=== PATIENT | female | born 1930 | race Caucasian/White ===

== ENCOUNTER 2019-02-28 11:43 | Emergency (ER) | payer OTHER ==
[~2019-02-28] VITALS: Ht 160 cm; Wt 76.2 kg
[2019-02-28 11:55] VITALS: Ht 160 cm; Wt 76.2 kg
[2019-02-28 12:52] LABS: CALCIUM 8.5 mg/dL (8.5-10.1); CARBON DIOXIDE 27.9 mmol/L (21-32); CHLORIDE SERUM 103 mmol/L (98-107); CREATININE SERUM 1.3 mg/dL (0.6-1.0); GLUCOSE SERUM 90 mg/dL (74-106); POTASSIUM SERUM 4.1 mmol/L (3.5-5.1); SODIUM SERUM 139 mmol/L (136-145)
[2019-02-28 12:58] LABS: ALKALINE PHOSPHATASE 56 U/L (46-116); ALT/SGPT 20 U/L (14-59); AST/SGOT 23 U/L (15-37); BILIRUBIN TOTAL 0.3 mg/dL (0.20-1.00); TOTAL PROTEIN, SERUM 6.6 g/dL (6.4-8.2)
[2019-02-28 13:01] LABS: ALBUMIN 3.2 g/dL (3.4-5.0)
[2019-02-28 13:11] LABS: BASOPHIL % 0.3 % (0-2); PLATELET COUNT 218 x10^3mcL (130-400)
[2019-02-28 13:48] LABS: UA SPECIFIC GRAVITY <=1.005 (1.005-1.035); microscopic required? YES; urine erythrocyte TRACE (NEGATIVE)
[2019-02-28 15:55] VITALS: BP 141/68
== END 2019-02-28 15:55 | disposition home or self-care (01) ==
LOC: ED 11:43
PROVIDERS: Emergency Medicine
DX: R53.1 Weakness (principal); T40.2X5A Adverse effect of other opioids, initial encounter; D64.9 Anemia, unspecified; I10 Essential (primary) hypertension; M19.90 Unspecified osteoarthritis, unspecified site; I25.2 Old myocardial infarction; Y92.89 Other specified places as the place of occurrence of the external cause
CPT/HCPCS: J1885; J7030; Q0092

== ENCOUNTER 2019-03-04 05:32 | Emergency (ER) | payer OTHER ==
[~2019-03-04] VITALS: Ht 162.6 cm; Wt 76.2 kg
[2019-03-04 05:45] VITALS: Ht 162.6 cm; Wt 76.2 kg
[2019-03-04 09:03] VITALS: BP 151/86
== END 2019-03-04 09:03 | disposition home or self-care (01) ==
LOC: ED 05:32
DX: S70.01XA Contusion of right hip, initial encounter (principal); S80.02XA Contusion of left knee, initial encounter; I10 Essential (primary) hypertension; M19.90 Unspecified osteoarthritis, unspecified site; W18.39XA Other fall on same level, initial encounter; Y93.89 Activity, other specified; Y92.098 Other place in other non-institutional residence as the place of occurrence of the external cause; Y99.8 Other external cause status
CPT/HCPCS: J3010

== ENCOUNTER 2019-04-09 06:22 | Emergency (ER) | payer OTHER ==
[~2019-04-09] VITALS: Ht 160 cm; Wt 76.2 kg
[2019-04-09 06:28] VITALS: Ht 160 cm; Wt 76.2 kg
[2019-04-09 07:37] LABS: BASOPHIL % 0.3 % (0-2); PLATELET COUNT 198 x10^3mcL (130-400)
[2019-04-09 07:46] LABS: CALCIUM 8.1 mg/dL (8.5-10.1); CARBON DIOXIDE 24.5 mmol/L (21-32); CHLORIDE SERUM 103 mmol/L (98-107); CREATININE SERUM 1.4 mg/dL (0.6-1.0); GLUCOSE SERUM 93 mg/dL (74-106); POTASSIUM SERUM 4.3 mmol/L (3.5-5.1); SODIUM SERUM 139 mmol/L (136-145)
[2019-04-09 07:51] LABS: RED CELL DISTRIBUTION WIDTH 16.5 % (11.5-14.5)
[2019-04-09 09:14] VITALS: BP 148/63
== END 2019-04-09 09:14 | disposition home or self-care (01) ==
LOC: ED 06:22
PROVIDERS: Emergency Medicine
DX: R33.9 Retention of urine, unspecified (principal); R39.198 Other difficulties with micturition; I10 Essential (primary) hypertension; M19.90 Unspecified osteoarthritis, unspecified site; Z86.73 Personal history of transient ischemic attack (TIA), and cerebral infarction without residual deficits
CPT/HCPCS: 36415

== ENCOUNTER 2019-04-15 01:21 | Inpatient (IN) | payer OTHER ==
[~2019-04-15] VITALS: Ht 162.6 cm; Wt 73.9 kg
--- NOTE | 2019-04-15 01:48 | NUR ---
PT BIBA FOR C/O RECTAL BLEEDING THAT HAD BEEN INTERMITTENT X4 DAYS. PER PT " I HAVE HAD 4 TIMES OF RED POOP". PT REPORTS HX OF DIVERTICULITIS. PT DENIES ANY RECENT TRAUMA TO THE AREA OR SEEING A SPECIALIST. PT IS A/O X4. PT RESPS ARE E/U. PT WAS TRANSFERRED FROM [facility] TO [facility] WITH NO INCIDENCE
--- NOTE | 2019-04-15 01:49 | NUR ---
MSE COMPLETED BY DR WARREN
--- NOTE | 2019-04-15 02:11 | NUR ---
PT MEDICATED PER EMAR ORDERS. PT IS A/O X4. PT RESPS ARE E/U. PT DENEISANY PAIN AT THIS TIME. PT IS PLACED IN POSITION OF COMFORT WITH CALL LIGHT WITHIN REACH. NO ACD NOTED
[2019-04-15 02:20] LABS: CALCIUM 8.5 mg/dL (8.5-10.1); CARBON DIOXIDE 26.9 mmol/L (21-32); CHLORIDE SERUM 104 mmol/L (98-107); CREATININE SERUM 1.6 mg/dL (0.6-1.0); GLUCOSE SERUM 100 mg/dL (74-106); SODIUM SERUM 139 mmol/L (136-145)
--- NOTE | 2019-04-15 02:20 | NUR ---
PT WAS STRAIGHT CATH FOR URINE SPECIMEN. PT TOLERATED PROCEDURE WELL
[2019-04-15 02:23] LABS: BASOPHIL % 0.3 % (0-2); PLATELET COUNT 231 x10^3mcL (130-400)
[2019-04-15 02:24] LABS: ALKALINE PHOSPHATASE 58 U/L (46-116); ALT/SGPT 14 U/L (14-59); AST/SGOT 15 U/L (15-37); BILIRUBIN TOTAL 0.19 mg/dL (0.20-1.00); LIPASE 256 IU/L (73-393); TOTAL PROTEIN, SERUM 6.7 g/dL (6.4-8.2)
[2019-04-15 02:27] LABS: ALBUMIN 3.2 g/dL (3.4-5.0)
--- NOTE | 2019-04-15 02:33 | NUR ---
PT TAKEN TO CT VIA LACI OLIVERA BY TECH
--- NOTE | 2019-04-15 02:40 | NUR ---
PT RETURNED FROM CT WITH NO INCIDECNE
--- NOTE | 2019-04-15 03:05 | NUR ---
PT PLACED ON BEDSIDE CAMMODE. PT STS THAT SHE NEEDS TO URINATE
[2019-04-15 03:30] LABS: UA SPECIFIC GRAVITY <=1.005 (1.005-1.035); microscopic required? YES; urine erythrocyte TRACE (NEGATIVE)
--- NOTE | 2019-04-15 03:31 | NUR ---
PLACED PT BACK IN BED AND NOTICED THAT THE PT HAS PASSED DARK RED LIQUID STOOL WITH AN ODOR. DR WARREN MADE AWARE
--- NOTE | 2019-04-15 04:20 | NUR ---
PORTABLE XRAY AT BEDSIDE
[2019-04-15 04:33] LABS: CHOLESTEROL/HDL RATIO 2.9; MAGNESIUM 2.1 mg/dL (1.8-2.4)
--- NOTE | 2019-04-15 04:33 | NUR ---
GAVE PT REPORT TO MARTHA ARVIZU ON TELE FLOOR WHO WILL ASSUME PRIMARY CARE OF PT.
[2019-04-15] MEDS ORDERED: GOOD SENSE ASPI81 M3 (04:54)
[2019-04-15] MEDS ORDERED: ZESTRIL5 MG (04:54)
[2019-04-15] MEDS ORDERED: ATENOLOL25 MG (04:54)
[2019-04-15] MEDS ORDERED: LIPITOR40 MG (04:54)
[2019-04-15 05:17] VITALS: BP 128/69
--- NOTE | 2019-04-15 05:34 | NUR ---
RECIEVED PT FROM ED. PT IS NO APPARENT DISTRESS. PT IS A/O X4. ON TELE #18, ST. DENIES ANY CHEST PAIN OR PRESSURE. PULSES ARE PRESENT. NO EDEMA NOTED. PT STATES SHE FEELS A TINGLING SENSATION ON R LEG AFTER HER FALLS. PT STATED SHE HAS FALLEN 2-3 TIMES IN THE LAST MONTH. MD FRIAS WAS MADE AWARE AND ORDERED XRAY. SKIN IS INTACT. LUNGS CLEAR IN ALL FEILDS. ON RA, DENIES ANY SOB. EQUAL CHEST RISE AND FALL. NO SIGN OF RESP DISTRESS. BOWEL SOUNDS PRESENT x4. DENIES ANY ABD PAIN. PT C/O BLOODY BMS. HAVING LAST 3 LAST NIGHT BEFORE COMING TO ED AND ONE DOWN IN ED. NO HEMRROID OR LACERATION ON RECTAL AREA NOTED. PT ALSO COMPLAINS OF UNABLE TO VOID BUT HAVING THE URGENCY TO VOID. PT LAST VOIDED DOWNSTAIRS BEFORE COMING UP. PT C/O OF BACK PAIN, DULL AND CONSTANT. WILL MEDICATE PER EMAR. IV ON RFA INTACT AND PATENT. BED IS AT LOWEST SETTING. CALL LIGHT WITHIN REACH. BED ALARM IS ON. FALL RISK BAND ON.
--- NOTE | 2019-04-15 06:38 | NUR ---
ASSISTED PT TO BEDSIDE CAMMODE. DARK RED LIQUID WITH SOLID DARK RED MASSES NOTED. PT WAS COMPLAINING OF PAIN, PAIN MEDICATION PER EMAR GIVEN. PT PLACED BACK IN BED. BED IS AT LOWEST SETTING. CALL LIGHT WITHIN REACH. WILL ENDORSE TO AM NURSE.
[2019-04-15 06:45] LABS: BASOPHIL % 0.2 % (0-2); PLATELET COUNT 210 x10^3mcL (130-400)
[2019-04-15 06:50] LABS: CARBON DIOXIDE 25.5 mmol/L (21-32); CHLORIDE SERUM 109 mmol/L (98-107); CREATININE SERUM 1.5 mg/dL (0.6-1.0); GLUCOSE SERUM 97 mg/dL (74-106); POTASSIUM SERUM 4.4 mmol/L (3.5-5.1); SODIUM SERUM 142 mmol/L (136-145)
--- NOTE | 2019-04-15 07:15 | NUR ---
AAO X4.DENIES ANY PAIN/DISCOMFORT.LUNGS CLEAR.ON SR ON THE MONITOR.HR=89.IVF NS GOING AT 100 ML/HR INFUSING WELL.ON NPO STATUS.FOR TO SEE.CALL LIGHT WITHIN REACH.INSTRUCTED TO CALL FOR ANY PAIN/DISCOMFORT.WILL CONTINUE TO MONITOR PT.
[2019-04-15 07:21] LABS: RED CELL DISTRIBUTION WIDTH 16.4 % (11.5-14.5)
[2019-04-15 08:51] VITALS: BP 123/63
--- NOTE | 2019-04-15 10:28 | NUR ---
PT C/O BACK PAIN AT 8/10 PAIN SCALE.NORCO NOT TIME YET.SPOKE WITH WILL ORDER PAIN MED.
--- NOTE | 2019-04-15 11:18 | NUR ---
SPOKE WITH .INFORMED HIM ABOUT THE INSURANCE WANTING TO HAVE PT TRANSFER TO CONTRACTED HOSPITAL. PER PT IS STABLE TO BE TRANSFERRED TO CONTRACTED HOSPITAL.
[2019-04-15 12:34] VITALS: BP 136/74
[2019-04-15 13:14] LABS: TOTAL IRON BINDING CAPACITY 320 ug/dL (250-450)
[2019-04-15 13:15] LABS: IRON 26 ug/dL (50-170)
--- NOTE | 2019-04-15 14:26 | NUR ---
TALKED TO TO LET HIM KNOW ABOUT PT HAD PSVT NON-SUSTAINED.PT ASSYMPTOMATIC.
[2019-04-15 17:56] VITALS: BP 143/65
[2019-04-15 18:39] VITALS: Ht 162.6 cm; Wt 73.9 kg
--- NOTE | 2019-04-15 19:30 | NUR ---
PT IS A/O x4. ON TELE #18, ST WITH HR OF 110. PULSES ARE PRESENT. NO EDEMA NOTED. LUNGS CLEAR IN ALL FEILDS. ON RA, DENIES ANY SOB. EQUAL CHEST RISE AND FALL. NO SIGN OF RESP DISTRESS. BOWEL SOUNDS PRESENT X4. DENIES ANY ABD PAIN OR DISTRESS. PT STATED NOT HAVING ANY BLOODY BM LATER IN THE DAY. STILL COMPAINING OF URGENCY FOR URINATION BUT WAS ABLE TO VOID TODAY. COMPLAINS OF THE TINGLING SENSATION ON RLE. SKIN INTACT. COMPLAINS OF MILD LOWER BACK DISCOMFORT, 3/10. DULL AND TOLERABLE. IV ON RFA INTACT AND PATENT. GRANDDAUGHTER AT BEDSIDE. BED IS AT LOW SETTING. CALL LIGHT WITHIN REACH. WILL CONTINUE TO MONTIOR.
--- NOTE | 2019-04-15 19:51 | NUR ---
PT IS COMPLAINING OF BACK PAIN. PAIN MEDICATION GIVEN PER EMAR. K PAD PLACED ON HER BACK FOR WARM COMFORT. PT STATES THE PAD FEELS NICE. WILL CONTINUE TO MONTIOR.
--- NOTE | 2019-04-15 20:05 | NUR ---
PT IS CRYING IN PAIN. STATING THE NORCO ISN'T HELPING AND THAT SHE IS IN ALOT OF PAIN. MD FRIAS WAS CALLED AND ASKED FOR DIFFERENT PAIN MEDICATION. MD TO INPUT ORDERS.
--- NOTE | 2019-04-15 20:26 | NUR ---
ONE TIME DOES PAIN MEDICATION GIVEN PER EMAR. PT IS SEEN IN ALOT OF PAIN MOANING AND CRYING. WILL REASSES PT PAIN.
[2019-04-15 21:10] VITALS: BP 147/79
[2019-04-16] VITALS (7 sets, daily range): BP systolic 95–134; BP diastolic 56–82
--- NOTE | 2019-04-16 01:04 | NUR ---
PT IS RESTING IN BED WITH BOTH EYES CLOSED. BREATHING EVEN AND UNALBORED. NO SIGN OF DISTRESS NOTED. IV INTACT AND PATENT. BED IS AT LOWEST SETTING. CALL LIGHT WITHIN REACH. WILL CONTINUE TO MONTIOR.
[2019-04-16 06:05] LABS: BASOPHIL % 0.2 % (0-2); PLATELET COUNT 187 x10^3mcL (130-400)
--- NOTE | 2019-04-16 06:22 | NUR ---
PT IS RESTING IN BED. COMPLAIN OF BACK PAIN AND REQUESTED A PAIN MEDICATION. GIVEN NORCO PER EMAR. PT IS HAVING SMALL BLOODY, LIQUID STOOLS WITH SMALL CLOTS. ONLY TWO EPISODES OCCURED IN THE EARLY AM. BED IS AT LOWEST SETTING. CALL LIGHT WITHIN REACH. WILL CONTIUE TO [facility].
[2019-04-16 06:23] LABS: CALCIUM 7.9 mg/dL (8.5-10.1); CARBON DIOXIDE 25.7 mmol/L (21-32); CHLORIDE SERUM 112 mmol/L (98-107); CREATININE SERUM 1.2 mg/dL (0.6-1.0); GLUCOSE SERUM 85 mg/dL (74-106); MAGNESIUM 1.8 mg/dL (1.8-2.4); PHOSPHOROUS 3.2 mg/dL (2.5-4.9); POTASSIUM SERUM 4.7 mmol/L (3.5-5.1); SODIUM SERUM 145 mmol/L (136-145)
--- NOTE | 2019-04-16 07:15 | NUR ---
PT RESTING IN BED WITH BOTH EYES CLOSED. EASILY AROUSABLE TO VERBAL STIMULI. FACE SYMMETRICAL. SPEECH CLEAR. AA/OX4. FOLLOWS COMPLEX COMMANDS, RESPONDS TO VERBAL STIMULI. SINUS TACH ON TELE 18. DENIES CHEST PAIN. DENIES SOB ON ROOM AIR. BSC IN PLACE AT BEDSIDE. FALL PRECAUTIONS IN PLACE. BED ALARM ON. INSTRUCTED TO USE CALL LIGHT TO CALL FOR ASSISTANCE BEFORE AMBULATING. VERBALIZED UNDERSTANDING. IV WNL TO RFA, IV FLUIDS FLOWING, PATENT, SITE WNL. NO S/S OF ACUTE DISTRESS. BED IN LOW POSITION. CALL LIGHT WITHIN REACH. PT DENIES PAIN/BACK PAIN AT THIS TIME. NO N/V. SIDE RAILS UP X2. WILL CONTINUE TO MONITOR.
[2019-04-16 07:27] LABS: RED CELL DISTRIBUTION WIDTH 16.3 % (11.5-14.5)
--- NOTE | 2019-04-16 12:55 | NUR ---
PT AA/OX4. ASSISTED TO BSC, VOID X1. ASSISTED BACK TO BED. GAIT SLOW/STEADY. TOLERATED ACTIVITY WELL. NO S/S OF ACUTE DISTRESS. DENIES PAIN AT THIS TIME. NO SOB ON ROOM AIR. NO CHEST PAIN. CALM/COOPERATIVE. BED IN LOW POSITION. HOB ELEVATED, PT EATING LUNCH. FALL PRECAUTIONS IN PLACE. BED ALARM ON. SIDE RAILS UP X2. WILL CONTINUE TO MONITOR.
--- NOTE | 2019-04-16 15:08 | NUR ---
PHYSICAL THERAPY DAILY NOTES CO-SIGN All documentation done by the Stitch Welder for 04/16/19 has been reviewed. I agree with the documentation. Reviewed/Co-Signed by: Elma Massey PT Documentation Done by: ELLE SALMERON PTA
--- NOTE | 2019-04-16 19:29 | NUR ---
PT LAYING IN BED. AA/OX4. ASSISTED TO BSC, BM X1 DARK/BLACK. DENIES ABD. PAIN. NO N/V. VOID X1. COMPLAINT OF URGENCY/FREQUENCY. ASSISTED WITH PERINEAL/PERIANAL CARE. NO S/S OF ACUTE DISTRESS. NO CHEST PAIN. NO SOB ON ROOM AIR. BED IN LOW POSITION. CALL LIGHT WITHIN REACH. IV WNL. IV FLUIDS FLOWING. FAMILY AT BEDSIDE. FALL PRECAUTIONS IN PLACE. ENDORSED TO NOC LUH YEH.
--- NOTE | 2019-04-16 19:49 | NUR ---
PT CURRENTLY RESTING IN BED, NO ACUTE DISTRESS. A/O X4. TELE #18 SHOWING SINUS TACHYCARDIA, DENIES CHEST PAIN. PULSES PALPABLE IN ALL EXTREMITIES, NO EDEMA NOTED. LUNG SOUNDS CTA BILATERALLY, DENIES SOB. BOWEL SOUNDS ACTIVE, LAST BM 04/16/19, DARK TARRY STOOLS. VOIDING WELL. MILD GENERALIZED WEAKNESS, AMBULATORY WITH ASSIST. SKIN INTACT. C/O BACK PAIN /10, PT STATES TOLERABLE. IV PATENT AND INTACT. BED IN LOWEST POSITION, SIDE RAILS UP X2, CALL LIGHT WITHIN REACH. WILL CONTINUE TO MONITOR.
--- NOTE | 2019-04-17 01:21 | NUR ---
LENTZ CATHETER ESTONIAN 16 INSERTED, PT TOLERATED WELL.
--- NOTE | 2019-04-17 01:26 | NUR ---
PT C/O ABD PRESSURE, BLADDER SCANNER RESULTS OVER 613ML OF URINE, DR PRATT INFORMED. LENTZ CATHERER INSERTED BY LETY ARVIZU PER ORDERS. WILL CONTINUE TO MONITOR.
--- NOTE | 2019-04-17 01:27 | NUR ---
PT C/O ANXIETY/RESTLESSNESS. DR PRATT INFORMED. WILL CONTINUE TO MONITOR.
--- NOTE | 2019-04-17 05:50 | NUR ---
PT SLEPT PERIODICALLY THROUGHOUT NIGHT, NO ACUTE DISTRESS. ALL NEEDS MET AND ATTENDED TO. NO SIGNIFICANT CHANGES. IV PATENT AND INTACT. BED IN LOWEST POSITION, SIDE RAILS UP X2, CALL LIGHT WITHIN REACH. WILL ENDORSE CARE TO ONCOMING NURSE.
[2019-04-17 06:14] LABS: BASOPHIL % 0.3 % (0-2); PLATELET COUNT 184 x10^3mcL (130-400)
[2019-04-17 06:20] LABS: RED CELL DISTRIBUTION WIDTH 16.5 % (11.5-14.5)
[2019-04-17 06:39] LABS: CALCIUM 7.8 mg/dL (8.5-10.1); CARBON DIOXIDE 25.8 mmol/L (21-32); CHLORIDE SERUM 113 mmol/L (98-107); CREATININE SERUM 1.2 mg/dL (0.6-1.0); GLUCOSE SERUM 89 mg/dL (74-106); POTASSIUM SERUM 3.8 mmol/L (3.5-5.1); SODIUM SERUM 147 mmol/L (136-145)
[2019-04-17 06:53] VITALS: BP 104/53
--- NOTE | 2019-04-17 07:05 | NUR ---
RECEIVED PT FROM RUSLAN RN. PT AA/OX4. LAYING IN BED. NO S/S OF ACUTE DISTRESS. NO SOB ON ROOM AIR. NO COMPLAINT OF PAIN AT THIS TIME. IV WNL TO RFA, IV FLUIDS FLOWING. SINUS TACH ON TELE HR 108. NO CHEST PAIN. NO N/V. NPO FOR PROCEDURE. LENTZ IN TACT. FALL PRECAUTIONS IN PLACE. SIDE RAILS UP X2. BED IN LOW POSITION. CALL LIGHT WITHIN REACH. BED ALARM ON. INSTRUCTED TO USE CALL LIGHT TO CALL FOR ASSISTANCE PRN AND BEFORE GETTING OOB. PT VERBALIZED UNDERSTANDING. WILL CONTINUE TO MONITOR.
[2019-04-17 08:16] VITALS: BP 136/51
--- NOTE | 2019-04-17 09:00 | NUR ---
PT TAKEN TO GI LAB BY PHAN RAMIREZ, TAKEN BY TREY. TELE REMOVED. IV WNL TO RFA, SALINE LOCKED. LENTZ IN TACT. DRAINING CLEAR/YELLOW URINE. BELONGINGS AT BEDSIDE. ENDORSED TO GI LAB BY RUSLAN YEH. PT AA/OX4. NO S/S OF ACUTE DISTRESS. NO COMPLAINT OF PAIN. VS STABLE.
--- NOTE | 2019-04-17 10:17 | NUR ---
P.T. NOTES UNABLE TO SEE PATIENT FOR P.T., PATIENT DOWN TO G.I. LAB AT THIS TIME.
[2019-04-17 10:40] VITALS: BP 125/48
--- NOTE | 2019-04-17 10:40 | NUR ---
PT BACK FROM PROCEDURE. DROWSY, AROUSABLE TO TACTILE STIMULI. VS STABLE: 125/47, HR 80, TEMP 97.8, O2 SAT 97% ON 2LNC, RR 18. NO S/S OF ACUTE DISTRESS. NO SOB ON ROOM AIR. NO CHEST PAIN. IV WNL TO RFA, SALINE LOCKED. FALL PRECAUTIONS IN PLACE. NO N/V. PT CALM/COOPERATIVE. BED IN LOW POSITION. CALL LIGHT WITHIN REACH. BED ALARM ON. WILL CONTINUE TO MONITOR.
[2019-04-17 12:09] VITALS: BP 146/86
--- NOTE | 2019-04-17 14:29 | NUR ---
PHYSICAL THERAPY DAILY NOTES CO-SIGN All documentation done by the Silk Screen Layout Drafter for 04/17/19 has been reviewed. I agree with the documentation. Reviewed/Co-Signed by: Elma Massey PT Documentation Done by: ELLE SALMERON PTA
--- NOTE | 2019-04-17 16:19 | NUR ---
PT COMPLAINT OF PAIN TO RLE, AGGRAVATED BY MOVEMENT. PT AMBULATED TO BSC WITH ASSIST. PT DESCRIBES PAIN SHARP/ACHING. INTERMITTENT. CHRONIC. GIVEN PO PAIN MED, SEE OCT. NO CHEST PAIN. SINUS TACH ON TELE. NO S/S OF ACUTE DISTRESS. NO SOB ON ROOM AIR, O2 SAT 98%. VS STABLE. BED IN LOW POSITION. CALL LIGHT WITHIN REACH. SIDE RAILS UPX2. FALL PRECAUTIONS IN PLACE. WILL CONTINUE TO MONITOR.
[2019-04-17 17:19] VITALS: BP 147/80
--- NOTE | 2019-04-17 18:14 | NUR ---
PT LAYING IN BED. DENIES PAIN AT THIS TIME. NO SOB ON ROOM AIR. O2 SAT 98%. RR EVEN/UNLABORED. CHEST EXPANSION SYMMETRICAL. NO CHEST PAIN. AA/OX4. PT CALM/COOPERATIVE. IV WNL TO RFA, SALINE LOCKED. FLUSHES WELL. FALL PRECAUTIONS IN PLACE. BED IN LOW POSITION. PT REPORTS RELIEF OF ANXIETY AT THIS TIME. CALL LIGHT WITHIN REACH. WILL ENDORSE TO ONCOMING SHIFT.
[2019-04-17 19:39] VITALS: BP 107/54
--- NOTE | 2019-04-17 20:16 | NUR ---
PT CURRENTLY RESTING IN BED, NO ACUTE DISTRESS. A/O X4. TELE #18 SHOWING SINUS TACHYCARDIA, DENIES CHEST PAIN. PULSES PALPABLE IN ALL EXTREMITIES, NO EDEMA NOTED. LUNG SOUNDS CTA BILATERALLY, DENIES SOB. BOWEL SOUNDS ACTIVE, LAST BM 04/17/19, DARK RED STOOL. LENTZ CATHETER IN PLACE, YELLOW URINE NOTED. MILD GENERALIZED WEAKNESS, AMBULATORY WITH ASSIST. SKIN INTACT. DENIES PAIN AT THIS TIME. IV PATENT AND INTACT. BED IN LOWEST POSITION, SIDE RAILS UP X2, CALL LIGHT WITHIN REACH. WILL CONTINUE TO MONITOR.
--- NOTE | 2019-04-17 23:55 | NUR ---
PT CURRENTLY RESTING IN BED, NO ACUTE DISTRESS. WILL CONTINUE TO MONITOR.
[2019-04-18 04:39] VITALS: BP 137/68
[2019-04-18 06:56] LABS: BASOPHIL % 0.3 % (0-2); PLATELET COUNT 197 x10^3mcL (130-400)
[2019-04-18 07:02] LABS: RED CELL DISTRIBUTION WIDTH 16.3 % (11.5-14.5)
[2019-04-18 07:23] LABS: CALCIUM 8.4 mg/dL (8.5-10.1); CARBON DIOXIDE 27.8 mmol/L (21-32); CHLORIDE SERUM 110 mmol/L (98-107); CREATININE SERUM 1.3 mg/dL (0.6-1.0); GLUCOSE SERUM 91 mg/dL (74-106); POTASSIUM SERUM 3.7 mmol/L (3.5-5.1); SODIUM SERUM 146 mmol/L (136-145)
[2019-04-18 09:20] VITALS: BP 113/67
--- NOTE | 2019-04-18 11:31 | NUR ---
AT 0705 - RECEIVED PATIENT FROM NIGHT NURSE. SLEEPING. RESPIRATIONS REGULAR. MONITOR SHOWING SINUS TACH; RATE 110. LENTZ CATHETER DRAINING YELLOW URINE. AT 0815 - PATIENT AWAKE, ALERT AND ORIENTED. SITTING ON SIDE OF BED EATING BREAKFAST. AT 0945 - PHYSICAL THERAPY AT BEDSIDE. PATIENT AMBULATED WITH PT OUTSIDE OF ROOM, USING WALKER. NOW SITTING IN CHAIR. MONITOR SHOWING SINUS TACH; RATE 120'S. DENEIS ANY PAIN OR SOB. CONTINUING TO MONITOR.
[2019-04-18 11:58] VITALS: BP 124/65
[2019-04-18] MEDS ORDERED: FER300 PO (13:14)
[2019-04-18] MEDS ORDERED: AMITIZA24 MC1 PO (13:14)
[2019-04-18] MEDS ORDERED: METP PO (13:15)
[2019-04-18] MEDS ORDERED: ELA10 PO (13:15)
[2019-04-18 13:39] VITALS: BP 124/64
--- NOTE | 2019-04-18 14:02 | NUR ---
RECEIVED DISCHARGE ORDERS. SPOKE WITH DR RANDOLPH FOR DR FRANCISCO. RECEIVED VERBAL ORDER TO DC LENTZ CATHETER PRIOR TO DISCHARGE.
--- NOTE | 2019-04-18 16:20 | NUR ---
AT 1400 - RECEIVED VERBAL ORDER FROM DR RANDOLPH TO REMOVE LENTZ CATHETER PRIOR TO DISCHARGE. AT 1420 - LENTZ CATHETER REMOVED INTACT WITH BALLOON DEFLATED. PATIENT TAKEN OFF CARDIAC MONITORING. AT 1540 - PATIENT HAS VOIDED POST REMOVAL OF LENTZ CATHETER. IV REMOVED INTACT. PREPARED FOR DISCHARGE. AT 1600 - PATIENT'S DAUGHTER MAIKOL, PER PHONE SHE WILL MULTI CARE TECHNICIAN PATIENT. AT 1620 - PRINTED DISCHARGE INSTRUCTIONS GIVEN AND EXPLAINED TO PATIENT AND DAUGHTER. PRESCRIPTION PROVIDED.
--- NOTE | 2019-04-18 16:42 | NUR ---
DISCHARGED HOME WITH DAUGHTER. TAKEN TO DISCHARGE OFFICE IN WHEELCHAIR BY JUAN.
== END 2019-04-18 16:45 | disposition home health service (06) | DRG 377 ==
LOC: ED 01:21 → DU 04:01
PROVIDERS: Emergency Medicine; Internal Medicine; Internal Medicine Gastroenterology; ADMIT Internal Medicine
PROC: 0DB78ZX Excision of Stomach, Pylorus, Via Natural or Artificial Opening Endoscopic, Diagnostic (ICD-10-PCS; principal; 2019-04-17 08:00)
PROC: 0DJD8ZZ Inspection of Lower Intestinal Tract, Via Natural or Artificial Opening Endoscopic (ICD-10-PCS; 2019-04-17 08:00)
DX: K57.31 Diverticulosis of large intestine without perforation or abscess with bleeding (principal); N17.0 Acute kidney failure with tubular necrosis; D62 Acute posthemorrhagic anemia; N39.0 Urinary tract infection, site not specified; K64.8 Other hemorrhoids; I10 Essential (primary) hypertension; E87.8 Other disorders of electrolyte and fluid balance, not elsewhere classified; F32.9 Major depressive disorder, single episode, unspecified; I25.10 Atherosclerotic heart disease of native coronary artery without angina pectoris; M47.896 Other spondylosis, lumbar region; I25.2 Old myocardial infarction; Z91.5 Personal history of self-harm; Z79.82 Long term (current) use of aspirin; Z68.29 Body mass index [BMI] 29.0-29.9, adult; Z87.891 Personal history of nicotine dependence; I11.9 Hypertensive heart disease without heart failure
CPT/HCPCS: 43235; 45378; 83880; 97110-GP; 97116-GP; 97530-GP; C9113; G0378; J0696; J1200; J1610; J2060; J2250; J2270; J2310; J2405; J3010; J3490; J7030; Q0092

== ENCOUNTER 2019-04-22 20:16 | Emergency (ER) | payer OTHER ==
[~2019-04-22] VITALS: Ht 162.6 cm; Wt 75.7 kg
[~2019-04-22 20:16] MED LIST: AMITIZA24 MC1 PO; ATENOLOL25 MG; ELA10 PO; FER300 PO; GOOD SENSE ASPI81 M3; LIPITOR40 MG; METP PO; ZESTRIL5 MG
[2019-04-22 21:34] LABS: BASOPHIL % 0.1 % (0-2); PLATELET COUNT 312 x10^3mcL (130-400)
[2019-04-22 21:35] LABS: RED CELL DISTRIBUTION WIDTH 17.1 % (11.5-14.5)
[2019-04-22 21:44] LABS: CALCIUM 8.2 mg/dL (8.5-10.1); CARBON DIOXIDE 25.5 mmol/L (21-32); CHLORIDE SERUM 103 mmol/L (98-107); CREATININE SERUM 1.8 mg/dL (0.6-1.0); GLUCOSE SERUM 108 mg/dL (74-106); POTASSIUM SERUM 4.4 mmol/L (3.5-5.1); SODIUM SERUM 138 mmol/L (136-145)
[2019-04-22 21:49] LABS: ALBUMIN 3.2 g/dL (3.4-5.0); ALKALINE PHOSPHATASE 74 U/L (46-116); ALT/SGPT 15 U/L (14-59); AST/SGOT 21 U/L (15-37); BILIRUBIN TOTAL 0.2 mg/dL (0.20-1.00)
[2019-04-23 03:38] VITALS: BP 117/65
== END 2019-04-23 03:38 | disposition home or self-care (01) ==
LOC: ED 20:16
PROVIDERS: Emergency Medicine
DX: M54.5 Low back pain (principal); G89.29 Other chronic pain
CPT/HCPCS: J1885; J7030